=== PATIENT | female | born 1955 | race Caucasian/White ===

== ENCOUNTER 2016-11-04 13:51 | Day surgery (SDC) | payer OTHER, MEDICARE ==
[~2016-11-04] VITALS: Ht 165.1 cm; Wt 86.2 kg
--- NOTE | ~2016-11-04 | EGD ---
EGD REPORT [facility] [address] [id number] NAME: BERE MELO : [birth year] STATUS : [place] [facility] [place]#: [id number] AGE: 61 ADM/REG DATE : 11/04/16 MR#: [id number] REPORT SERV DATE: 11/04/16 DICTATED BY: ABRAHAM CABAN DATE: 11/04/16 REPORT STATUS : Draft TRANSCRIBED BY: [employer] DATE: 11/04/16 [facility] Patient Name: Bere Melo Date of : 1955 Attending MD: LEISA CABAN MD Procedure Date No Time: 11/04/2016 Procedure: Upper GI endoscopy Indications: Dysphagia Referring MD: Kacey Purvis Medicines: See the Anesthesia note for documentation of the administered medications Complications: No immediate complications. Estimated blood loss: None. Procedure: Pre-Anesthesia Assessment: - ASA Grade Assessment: III - A patient with severe systemic disease. - Prior to the procedure, a History and Physical was performed, and patient medications and allergies were reviewed. The patient's tolerance of previous anesthesia was also reviewed. The risks and benefits of the procedure and the sedation options and risks were discussed with the patient. All questions were answered, and informed consent was obtained. Prior Anticoagulants: The patient has taken no previous anticoagulant or antiplatelet agents. After reviewing the risks and benefits, the patient was deemed in satisfactory condition to undergo the procedure. After obtaining informed consent, the endoscope was passed under direct vision. Throughout the procedure, the patient's blood pressure, pulse, and oxygen saturations were monitored continuously. The GIF [id number] was introduced through the mouth, and advanced to the second part of duodenum. The upper GI endoscopy was accomplished without difficulty. The patient tolerated the procedure well. Findings: The examined duodenum was normal. The entire examined stomach was normal. The cardia and gastric fundus were normal on retroflexion. A non-obstructing Schatzki ring (acquired) was found at the gastroesophageal junction. A guidewire was placed and the scope was withdrawn. Dilation was performed with a Savary dilator with no resistance at 45 Fr, no resistance at 51 Fr and no resistance at 57 Fr. Diffuse mild erythema was found at the gastroesophageal junction. Biopsies were taken with a cold forceps for histology. EGD REPORT [address] [address] NAME: BERE MELO : [birth year] STATUS : REG [facility]#: [id number] AGE: 61 ADM/REG DATE : 11/04/16 MR#: [id number] REPORT SERV DATE: 11/04/16 DICTATED BY: ABRAHAM CABAN DATE: 11/04/16 REPORT STATUS : Draft TRANSCRIBED BY: [employer] DATE: 11/04/16 Impression: - Normal examined duodenum. - Normal stomach. - Non-obstructing Schatzki ring. Dilated. Recommendation: - Patient has a contact number available for emergencies. The signs and symptoms of potential delayed complications were discussed with the patient. Return to normal activities tomorrow. Written discharge instructions were provided to the patient. - Regular diet. - Discharge patient to home. - Continue present medications. - Await pathology results. Procedure Code(s): --- Professional --- 69563, Esophagogastroduodenoscopy, flexible, transoral; with insertion of guide wire followed by passage of dilator(s) through esophagus over guide wire 66441, Esophagogastroduodenoscopy, flexible, transoral; with biopsy, single or multiple Diagnosis Code(s): --- Professional --- K22.2, Esophageal obstruction R13.10, Dysphagia, unspecified CPT copyright 2013 [employer]. All rights reserved. The codes documented in this report are preliminary and upon horticultural agent review may be revised to meet current compliance requirements. LEISA CABAN MD 11/04/2016 4:42 PM This report has been signed electronically. Number of Addenda: 0 Note Initiated On: 11/04/2016 4:17 PM Scope Withdrawal Time 0 hours 0 minutes 0 seconds [address] [id number]
[~2016-11-04 13:51] MED LIST: ALLEGRA180 PO; ASAB PO; BUSPAR15 M1 PO; EFFEX75 PO; KAPIDEX60 MG PO; LYRICA75 PO; MOBIC15 MG PO; PERI-COLACE1 TAB PO; PRILOSEC40 MG PO; RANITIDINE300 MG PO; SINGULAIR1 PO; TRAZODONE150 MG PO; ULTRAM50 PO
== END 2016-11-04 23:59 | disposition home health service (06) ==
LOC: DMU 13:51
PROVIDERS: Internal Medicine Gastroenterology
PROC: 0D748ZZ Dilation of Esophagogastric Junction, Via Natural or Artificial Opening Endoscopic (ICD-10-PCS; principal; 2016-11-04 15:00)
PROC: 0DB48ZX Excision of Esophagogastric Junction, Via Natural or Artificial Opening Endoscopic, Diagnostic (ICD-10-PCS; 2016-11-04 15:00)
DX: K22.2 Esophageal obstruction (principal); K21.0 Gastro-esophageal reflux disease with esophagitis; F41.9 Anxiety disorder, unspecified; F32.9 Major depressive disorder, single episode, unspecified; M79.7 Fibromyalgia; Z86.718 Personal history of other venous thrombosis and embolism; Z88.8 Allergy status to other drugs, medicaments and biological substances; Z79.82 Long term (current) use of aspirin; Z79.899 Other long term (current) drug therapy; Z90.710 Acquired absence of both cervix and uterus; Z90.49 Acquired absence of other specified parts of digestive tract; Z98.890 Other specified postprocedural states
CPT/HCPCS: 88305